=== PATIENT | male | born 1990 | race Caucasian/White ===

== ENCOUNTER 2017-06-18 22:29 | Emergency (ER) | payer BC ==
[2017-06-18] MEDS ORDERED: MOTRIN 600 MG PO ONE (22:57)
--- NOTE | 2017-06-18 23:00 | ERPHSYRPT ---
- History of Present Illness Time Seen by Provider: 06/18/17 22:45 Source: patient, family (father) Patient Subjective Stated Complaint: Right arm pain Triage Nursing Assessment: Pt presents to the ED from home with father at bedside. PT states that he was playing basketball earlier today when he was hit in his right arm with an elbow causing pain. No deformity noted. No other complaints. Physician History: CC: right elbow injury Hx: 26 y/o patient of Dr Rodriguez with hgx of IDDM. He was playing basketball and struck right elbow to another player's elbow. Pain in right elbow. No other injuries. No N/T/W. Occurred: just prior to arrival (1 1/2 hours ago) Extremities Pain Location: elbow: right Allergies/Adverse Reactions: Sulfa (Sulfonamide Antibiotics) [Sulfa(Sulfonamide Antibiotics)] Allergy ( Intermediate, Verified 09/18/15 06:37) Hives Home Medications: Insulin Aspart [NovoLOG Insulin] 1 units SQ UD 11/08/14 [History] Hx Tetanus, Diphtheria Vaccination/Date Given: No Hx Influenza Vaccination/Date Given: No Hx Pneumococcal Vaccination/Date Given: No Immunizations Up to Date: No - Review of Systems Constitutional: No Symptoms Respiratory: No Dyspnea Cardiac: No Chest Pain Musculoskeletal: Joint Pain (right elbow), No Back Pain, No Neck Pain Neurological: No Focal Weakness, No Parasthesia - Past Medical History Pertinent Past Medical History: Yes Neurological History: No Pertinent History ENT History: No Pertinent History Cardiac History: No Pertinent History Respiratory History: No Pertinent History Endocrine Medical History: Diabetes Type I Musculoskeletal History: No Pertinent History GI Medical History: No Pertinent History History: No Pertinent History Psycho-Social History: No Pertinent History Male Reproductive Disorders: No Pertinent History - Past Surgical History Past Surgical History: Yes Neuro Surgical History: No Pertinent History Cardiac: No Pertinent History Respiratory: No Pertinent History Gastrointestinal: No Pertinent History Genitourinary: No Pertinent History Musculoskeletal: Orthopedic Surgery Male Surgical History: No Pertinent History Other Surgical History: rt arm set, Rt leg Rt knee surgery pt states he has a plate et five screws in his right leg - Social History Smoking Status: Never smoker Exposure to second hand smoke: No Drug Use: none Patient Lives Alone: No - Nursing Vital Signs Nursing Vital Signs: Initial Vital Signs Temperature 97.6 F 06/18/17 22:38 Pulse Rate 115 H 06/18/17 22:38 Respiratory Rate 14 06/18/17 22:38 Blood Pressure 116/74 06/18/17 22:38 O2 Sat by Pulse Oximetry 96 06/18/17 22:38 Pain Scale Pain Intensity 5 - Physical Exam General Appearance: alert Eyes, Ears, Nose, Throat Exam: moist mucous membranes Neck Exam: normal inspection, non-tender, supple Cardiovascular/Respiratory Exam: regular rate/rhythm Neuro/Tendon Exam: normal sensation, normal motor functions Mental Status Exam: alert, oriented x 3, cooperative Skin Exam: warm, dry, No rash SpO2: 96 Oxygen Delivery: Room Air Comments: right elbow somewhat tender, no swelling, no redness. ROM limited due to pain. No shoulder, wrist, or hand tenderness. - Course Nursing assessment & vital signs reviewed: Yes - Radiology Exams right elbow X-ray Interpretation: Interpreted by me, No Fracture, Nml Alignment Ordered Tests: Active Orders 24 hr Category Date Time Status Rinku Bandage Application -[facility] STAT Care 06/18/17 23:44 Active Cold Application STAT Care 06/18/17 22:57 Active ELBOW (MINIMUM 3 VIEWS) Stat Exams 06/18/17 22:57 Taken Medication Summary Discontinued Medications Generic Name Dose Route Start Last Admin Trade Name Freq PRN Reason Stop Dose Admin Ibuprofen 600 mg 06/18/17 22:57 06/18/17 23:06 Motrin 600 Mg PO 06/18/17 22:58 600 mg STAT ONE Administration Ibuprofen Confirm 06/18/17 23:04 Motrin 600 Mg Administered 06/18/17 23:05 Dose 600 mg .ROUTE .STK-MED ONE - Progress Progress Note: 06/18/17 23:45 Prelim xray no fx. Will use rinku wrap and his pre-existing sling and motrin. Follow up advised if not better M or T next week. Counseled pt/family regarding: diagnosis, need for follow-up - Departure Time of Disposition: 23:46 Departure Disposition: Home Clinical Impression: Contusion of right elbow Qualifiers: Encounter type: initial encounter Qualified Code(s): S50.01XA - Contusion of right elbow, initial encounter Condition: Stable Critical Care Time: No Referrals: CARLEEN RODRIGUEZ MD [Primary Care Provider] - Instructions: Contusion Additional Instructions: SPRAINS/STRAINS/CONTUSIONS 1. Rest the affected area as much as possible for the next few days. 2. Apply ice to the affected area for 20-30 minutes at a time, several times a day. 3. If you receive an elastic wrap, wear it only while awake for comfort and support. Re-wrap the elastic wrap if it feels too tight or too loose. 4. If swelling is present, elevate the affected part above the level of the heart for at least 2 to 3 days. 5. Use splints, slings, or crutches as instructed. 6. Watch for severe swelling, coldness, numbness, and discoloration of the fingers and toes. See your family physician or return to the emergency department if any of these are noted. Rinku and sling for few days. If not better Friday or Friday next week recheck with Dr Rodriguez.
[2017-06-18] MEDS ORDERED: MOTRIN 600 MG ONE (23:04)
[2017-06-18 23:56] VITALS: BP 130/70; PULSE 74; O2SAT 100
--- NOTE | 2017-06-19 09:18 | XRAY ---
Indication: Sports trauma. Comparison: February 19, 2017. 3 views of the right elbow again demonstrates normal bones, articulation, and soft tissues.
== END 2017-06-18 23:56 | disposition home or self-care (01) ==
LOC: ED 22:29
DX: S50.01XA Contusion of right elbow, initial encounter (principal); W50.0XXA Accidental hit or strike by another person, initial encounter; Y93.67 Activity, basketball; E10.8 Type 1 diabetes mellitus with unspecified complications; Z79.4 Long term (current) use of insulin
CPT/HCPCS: 73080; 99284; A9270-GY

== ENCOUNTER 2018-06-05 16:17 | Emergency (ER) | payer BC, OTHER ==
[2018-06-05] MEDS ORDERED: Sodium Chloride 0.9% 1000 ML 1,000 ML IV STA (16:32)
[2018-06-05] MEDS ORDERED: TORAdol 30 mg Injection IV ONE (16:32)
[2018-06-05] MEDS ORDERED: ROCEPHIN 1 Gm-D5w 50 ml Bag** 1 G/50 ML IVPB IV STA (16:33)
--- NOTE | 2018-06-05 16:36 | ERPHSYRPT ---
- History of Present Illness Time Seen by Provider: 06/05/18 16:33 Source: patient Physician History: fever today after 3 teeth pulled last Friday (wisdom teeth), speech fluent, no trismus, no lethargy Allergies/Adverse Reactions: Sulfa (Sulfonamide Antibiotics) [Sulfa(Sulfonamide Antibiotics)] Allergy ( Intermediate, Verified 09/18/15 06:37) Hives Home Medications: Insulin Aspart [NovoLOG Insulin] 1 units SQ UD 11/08/14 [History] Hx Tetanus, Diphtheria Vaccination/Date Given: No Hx Influenza Vaccination/Date Given: No Hx Pneumococcal Vaccination/Date Given: No - Review of Systems Constitutional: Fever Eyes: No Vision Changes Ears, Nose, & Throat: Mouth Pain, No Ear Pain, No Painful Swallowing Respiratory: No Dyspnea Cardiac: No Chest Pain Abdominal/Gastrointestinal: No Abdominal Pain Skin: No Rash Neurological: No Dizziness - Past Medical History Pertinent Past Medical History: Yes Neurological History: No Pertinent History ENT History: No Pertinent History Cardiac History: No Pertinent History Respiratory History: No Pertinent History Endocrine Medical History: Diabetes Type I Musculoskeletal History: No Pertinent History GI Medical History: No Pertinent History History: No Pertinent History Psycho-Social History: No Pertinent History Male Reproductive Disorders: No Pertinent History - Past Surgical History Past Surgical History: Yes Neuro Surgical History: No Pertinent History Cardiac: No Pertinent History Respiratory: No Pertinent History Gastrointestinal: No Pertinent History Genitourinary: No Pertinent History Musculoskeletal: Orthopedic Surgery Male Surgical History: No Pertinent History Other Surgical History: rt arm set, Rt leg Rt knee surgery pt states he has a plate et five screws in his right leg - Social History Smoking Status: Never smoker Exposure to second hand smoke: No Drug Use: none Patient Lives Alone: No - Nursing Vital Signs Nursing Vital Signs: Initial Vital Signs Temperature 99.9 F 06/05/18 16:32 Pulse Rate 118 H 06/05/18 16:32 Respiratory Rate 18 06/05/18 16:32 Blood Pressure 123/72 06/05/18 16:32 O2 Sat by Pulse Oximetry 99 06/05/18 16:32 Pain Scale Pain Intensity 4 - Physical Exam General Appearance: no apparent distress Eye Exam: eyes nml inspection ENT Exam: airway intact (healing extraction gingiva, no bleeding, no fluc mass) Neck Exam: normal inspection, non-tender, supple, full range of motion Respiratory Exam: no respiratory distress Extremity Exam: normal range of motion Neurologic Exam: alert, oriented x 3, cooperative Skin Exam: warm, dry - Course Nursing assessment & vital signs reviewed: Yes - Radiology Exams Chest X-ray Interpretation: Interpreted by me, No Pneumonia Ordered Tests: Active Orders 24 hr Category Date Time Status IV Insertion STAT Care 06/05/18 16:32 Active CHEST 1 VIEW (PORTABLE) Stat Exams 06/05/18 16:58 Taken BLOOD CULTURE Stat Lab 06/05/18 16:40 Received CBC W DIFF Stat Lab 06/05/18 16:40 Completed CMP Stat Lab 06/05/18 16:40 Completed Lactic Acid Stat Lab 06/05/18 17:05 Completed Urinalysis with Microscopy Stat Lab 06/05/18 Uncollected Medication Summary Generic Name Dose Route Start Last Admin Trade Name Freq PRN Reason Stop Dose Admin Sodium Chloride 1,000 mls @ 999 mls/hr 06/05/18 17:00 06/05/18 18:18 Sodium Chloride 0.9% 1000 Ml IV 06/05/18 20:00 Not Given .Q1H1M MÓNICA Discontinued Medications Generic Name Dose Route Start Last Admin Trade Name Freq PRN Reason Stop Dose Admin Ceftriaxone Sodium/Dextrose 1 g in 50 mls @ 100 mls/hr 06/05/18 16:33 17:25 Rocephin 1 Gm-D5w 50 Ml Bag IV 06/05/18 17:02 Infused STAT STA Infusion Sodium Chloride 1,000 mls @ 999 mls/hr 06/05/18 16:32 Sodium Chloride 0.9% 1000 Ml IV 06/05/18 17:32 .Q1H1M STA Metronidazole 500 mg in 100 mls @ 200 mls/hr 06/05/18 16:54 06/05/18 17:25 Flagyl 500 Mg Ivpb IV 06/05/18 17:23 200 ml/hr STAT STA 200 mls/hr Administration Piperacillin Sod/Tazobactam Sod 3.375 gm in 100 mls @ 200 mls/hr 06/05/18 16: 54 06/05/18 17:56 Zosyn 3.375gm/100 Ml D5w IV 06/05/18 17:23 200 ml/hr STAT STA 200 mls/hr Administration Ceftriaxone Sodium/Dextrose Confirm 06/05/18 16:56 Rocephin 1 Gm-D5w 50 Ml Bag Administered 06/05/18 16:57 Dose 1 g in 50 mls @ ud IV .STK-MED ONE Metronidazole Confirm 06/05/18 17:14 Flagyl 500 Mg Ivpb Administered 06/05/18 17:15 Dose 500 mg in 100 mls @ ud IV .STK-MED ONE Piperacillin Sod/Tazobactam Sod Confirm 06/05/18 17:31 Zosyn 3.375gm/100 Ml D5w Administered 06/05/18 17:32 Dose 3.375 gm in 100 mls @ ud IV .STK-MED ONE Ketorolac Tromethamine 30 mg 06/05/18 16:32 06/05/18 17:03 Toradol 30 Mg Injection IV 06/05/18 16:33 30 mg STAT ONE Administration Ketorolac Tromethamine Confirm 06/05/18 16:56 Toradol 30 Mg Injection Administered 06/05/18 16:57 Dose 30 mg .ROUTE .STK-MED ONE Lab/Rad Data: Laboratory Result Diagrams 06/05/18 16:40 06/05/18 16:40 Laboratory Results 06/05/18 06/05/18 06/05/18 Range/Units 17:24 17:05 16:40 WBC (4.0-10.5) K/mm3 RBC (4.1-5.6) M/mm3 Hgb (12.5-18.0) gm/dl Hct (42-50) % MCV (78-100) fl MCH (26-32) pg MCHC (32-36) g/dl RDW (11.5-14.0) % Plt Count (150-450) K/mm3 MPV (6-9.5) fl Gran % (36.0-66.0) % Eos # (Auto) (0-0.5) Absolute Lymphs (auto) (1.0-4.6) Absolute Monos (auto) (0.0-1.3) Lymphocytes % (24.0-44.0) % Monocytes % (0.0-12.0) % Eosinophils % (0.00-5.0) % Basophils % (0.0-0.4) % Absolute Granulocytes (1.4-6.9) Basophils # (0-0.4) Sodium 140 (137-145) mmol/L Potassium 3.8 (3.5-5.1) mmol/L Chloride 101 (98-107) mmol/L Carbon Dioxide 26 (22-30) mmol/L Anion Gap 16.2 H (5-15) MEQ/L BUN 10 (9-20) mg/dL Creatinine 0.74 (0.66-1.25) mg/dL Estimated GFR > 60.0 ML/MIN Glucose 78 (74-106) mg/dL Lactic Acid 1.3 (0.4-2.0) Calcium 9.9 (8.4-10.2) mg/dL Total Bilirubin 0.90 (0.2-1.3) mg/dL AST 18 (17-59) U/L ALT 15 (0-50) U/L Alkaline Phosphatase 71 (38-126) U/L Serum Total Protein 7.4 (6.3-8.2) g/dL Albumin 4.6 (3.5-5.0) g/dL Group A Strep Antibody NEGATIVE (NEGATIVE) 06/05/18 Range/Units 16:40 WBC 10.0 (4.0-10.5) K/mm3 RBC 5.50 (4.1-5.6) M/mm3 Hgb 16.2 (12.5-18.0) gm/dl Hct 47.7 (42-50) % MCV 86.7 (78-100) fl MCH 29.5 (26-32) pg MCHC 34.0 (32-36) g/dl RDW 13.5 (11.5-14.0) % Plt Count 258 (150-450) K/mm3 MPV 10.2 H (6-9.5) fl Gran % 83.4 H (36.0-66.0) % Eos # (Auto) 0.02 (0-0.5) Absolute Lymphs (auto) 0.72 L (1.0-4.6) Absolute Monos (auto) 0.90 (0.0-1.3) Lymphocytes % 7.2 L (24.0-44.0) % Monocytes % 9.0 (0.0-12.0) % Eosinophils % 0.2 (0.00-5.0) % Basophils % 0.2 (0.0-0.4) % Absolute Granulocytes 8.29 H (1.4-6.9) Basophils # 0.02 (0-0.4) Sodium (137-145) mmol/L Potassium (3.5-5.1) mmol/L Chloride (98-107) mmol/L Carbon Dioxide (22-30) mmol/L Anion Gap (5-15) MEQ/L BUN (9-20) mg/dL Creatinine (0.66-1.25) mg/dL Estimated GFR ML/MIN Glucose (74-106) mg/dL Lactic Acid (0.4-2.0) Calcium (8.4-10.2) mg/dL Total Bilirubin (0.2-1.3) mg/dL AST (17-59) U/L ALT (0-50) U/L Alkaline Phosphatase (38-126) U/L Serum Total Protein (6.3-8.2) g/dL Albumin (3.5-5.0) g/dL Group A Strep Antibody (NEGATIVE) - Progress Progress: improved Counseled pt/family regarding: lab results, diagnosis, need for follow-up, rad results - Departure Time of Disposition: 18:19 Departure Disposition: Home Clinical Impression: Visit for wound check Condition: Stable Critical Care Time: No Referrals: CARLEEN RODRIGUEZ MD [Primary Care Provider] - Instructions: Fever, Adult (DC) Additional Instructions: see your dentist, stop amoxil, start augmentin and flagyl, oral fluids, return if worse, tylenol
[2018-06-05] MEDS ORDERED: FLAGYL 500 MG IVPB 500 MG/100 ML BAG IV STA (16:54)
[2018-06-05] MEDS ORDERED: Zosyn 3.375GM/100 Ml D5W 3.375 GM/100 ML IVPB IV STA (16:54)
[2018-06-05] MEDS ORDERED: TORAdol 30 mg Injection ONE (16:56)
[2018-06-05] MEDS ORDERED: Sodium Chloride 0.9% 1000 ML 1,000 ML ONE (16:56)
[2018-06-05] MEDS ORDERED: ROCEPHIN 1 Gm-D5w 50 ml Bag** 1 G/50 ML IVPB IV ONE (16:56)
[2018-06-05 17:07] LABS: BASOPHIL % 0.2 % (0.0-0.4); Basophil (Absolute #) 0.02 (0-0.4); Eosinophil % 0.2 % (0.00-5.0); Eosinophil (Absolute #) 0.02 (0-0.5); Granulocyte Absolute (ANC) 8.29 (1.4-6.9); Granulocytes % 83.4 % (36.0-66.0); Hematocrit 47.7 % (42-50); Hemoglobin 16.2 gm/dl (12.5-18.0); Lymphocyte (Absolute #) 0.72 (1.0-4.6); Lymphocytes % 7.2 % (24.0-44.0); Mean Cell Volume 86.7 fl (78-100); Mean Corpuscular Hemoglobin 29.5 pg (26-32); Mean Platelet Volume 10.2 fl (6-9.5); Platelet Count 258 K/mm3 (150-450); Red Cell Distribution Width 13.5 % (11.5-14.0)
[2018-06-05] MEDS: Sodium Chloride 0.9% 1000 ML 1,000 ML IV SCH ×3 (17:11→18:18)
[2018-06-05 17:14] LABS: ALBUMIN 4.6 g/dL (3.5-5.0); ALKALINE PHOSPHATASE 71 U/L (38-126); ANION GAP 16.2 MEQ/L (5-15); BLOOD UREA NITROGEN 10 mg/dL (9-20); CHLORIDE 101 mmol/L (98-107); Calcium 9.9 mg/dL (8.4-10.2); Carbon Dioxide 26 mmol/L (22-30); Creatinine 1 0.74 mg/dL (0.66-1.25); Glucose 78 mg/dL (74-106); Potassium 3.8 mmol/L (3.5-5.1); SGOT/AST 18 U/L (17-59); SGPT/ALT 15 U/L (0-50); SODIUM 140 mmol/L (137-145); Total Protein 7.4 g/dL (6.3-8.2)
[2018-06-05] MEDS ORDERED: FLAGYL 500 MG IVPB 500 MG/100 ML BAG IV ONE (17:14)
[2018-06-05] MEDS ORDERED: Sodium Chloride 0.9% 1000 ML 2,000 ML ONE (17:14)
[2018-06-05] MEDS ORDERED: Zosyn 3.375GM/100 Ml D5W 3.375 GM/100 ML IVPB IV ONE (17:31)
[2018-06-05 18:08] VITALS: O2SAT 100
[2018-06-05 18:38] VITALS: BP 106/68; PULSE 100
--- NOTE | 2018-06-06 09:03 | XRAY ---
Indication: Fever and short of breath. Comparison: None Portable chest demonstrates normal heart, lungs, and bony thorax.
== END 2018-06-05 18:36 | disposition home or self-care (01) ==
LOC: ED 16:17
DX: Z51.89 Encounter for other specified aftercare (principal); Z98.818 Other dental procedure status
CPT/HCPCS: 36000; 36415; 71045; 80053; 83605; 85025; 87040; 87651; 96360; 96365; 96367; 96374; 99284; J0696; J1885; J2543

== ENCOUNTER 2020-10-30 21:08 | Emergency (ER) | payer OTHER ==
[2020-10-30 21:17] VITALS: BP 122/68; PULSE 95; O2SAT 96
--- NOTE | 2020-10-30 21:40 | ERPHSYRPT ---
- History of Present Illness Source: patient Patient Subjective Stated Complaint: pt c/o lt wrist pain from playing bb Triage Nursing Assessment: pt c/o lt wrist pain, occured while playing basketball. Pt has hx of breaking this arm x9 times. Pt states, "It got slapped and sandwiched between 2 people". No swelling noted. Able to move it but not to his usual. Can wiggle his finger slightly. Physician History: 30 yo wm w L wrist injury playing basketball. Pt did not fall and simply hit it on another player. Pt is R handed and has fractured the wrist in the past. Occurred: just prior to arrival Method of Injury: direct blow Quality: constant Severity of Pain-Max: mild Severity of Pain-Current: mild Extremities Pain Location: wrist: left Modifying Factors: Improves With: movement Associated Symptoms: none Allergies/Adverse Reactions: Sulfa (Sulfonamide Antibiotics) [Sulfa(Sulfonamide Antibiotics)] Allergy (Intermediate, Verified 10/30/20 21:17) Hives Home Medications: Insulin Aspart [NovoLOG Insulin] 1 units SQ UD 11/08/14 [History] Lamotrigine 100 mg PO DAILY 10/30/20 [History] clonazePAM [Klonopin] 0.5 mg PO BID PRN PRN 10/30/20 [History] Hx Tetanus, Diphtheria Vaccination/Date Given: Yes Hx Influenza Vaccination/Date Given: No Hx Pneumococcal Vaccination/Date Given: No Immunizations Up to Date: Yes Travel Risk - International Travel Have you traveled outside of the country in past 3 weeks: No - Coronavirus Screening Are you exhibiting any of the following symptoms?: No Close contact with a COVID-19 positive Pt in past 14-21 Days: No - Vaccine Status Have you recieved a Covid-19 vaccination: Yes [employer]: Moderna - Vaccination Dates Date of 2cond Vaccination (if applicable): n/a - Review of Systems Constitutional: No Symptoms Eyes: No Symptoms Ears, Nose, & Throat: No Symptoms Respiratory: No Symptoms Cardiac: No Symptoms Abdominal/Gastrointestinal: No Symptoms Genitourinary Symptoms: No Symptoms Skin: No Symptoms Neurological: No Symptoms Psychological: No Symptoms Endocrine: No Symptoms Hematologic/Lymphatic: No Symptoms Immunological/Allergic: No Symptoms - Past Medical History Pertinent Past Medical History: Yes Neurological History: No Pertinent History ENT History: No Pertinent History Cardiac History: No Pertinent History Respiratory History: No Pertinent History Endocrine Medical History: Diabetes Type I Musculoskeletal History: Fractures GI Medical History: No Pertinent History History: No Pertinent History Psycho-Social History: Anxiety, Bipolar, Depression Male Reproductive Disorders: No Pertinent History - Past Surgical History Past Surgical History: Yes Neuro Surgical History: No Pertinent History Cardiac: No Pertinent History Respiratory: No Pertinent History Gastrointestinal: No Pertinent History Genitourinary: No Pertinent History Musculoskeletal: Orthopedic Surgery Male Surgical History: No Pertinent History Other Surgical History: rt arm set, Rt leg Rt knee surgery pt states he has a plate et five screws in his right leg - Social History Smoking Status: Never smoker Exposure to second hand smoke: No Drug Use: none Patient Lives Alone: No Significant Family History: no pertinent family hx - Nursing Vital Signs Nursing Vital Signs: Initial Vital Signs Temperature 97.8 F 10/30/20 21:15 Pulse Rate 95 H 10/30/20 21:15 Respiratory Rate 16 10/30/20 21:15 Blood Pressure 122/68 10/30/20 21:15 O2 Sat by Pulse Oximetry 96 10/30/20 21:15 Pain Scale Pain Intensity 4 - Physical Exam General Appearance: no apparent distress Eyes, Ears, Nose, Throat Exam: normal ENT inspection, TMs normal, pharynx normal Neck Exam: normal inspection, non-tender, supple, No Brudzinski, No Kernig's, No meningismus Cardiovascular/Respiratory Exam: normal breath sounds, regular rate/rhythm, heart sounds normal Abdominal Exam: non-tender, soft Back Exam: normal inspection, normal range of motion, No vertebral tenderness Shoulder Exam: normal inspection Elbow/Forearm Exam: normal inspection Wrist Exam: bone tenderness (L wrist TTP distal radius/ulna/Minimal edema/Good radial pulse, distal sensation, and capillary return) Hand Exam: normal inspection, non-tender Neuro/Tendon Exam: normal sensation, normal motor functions, normal tendon functions, responds to pain Mental Status Exam: alert, oriented x 3, cooperative Skin Exam: normal color, warm, dry SpO2 Interpretation: normal SpO2: 96 O2 Delivery: Room Air - Course Nursing assessment & vital signs reviewed: Yes - Radiology Exams Wrist X-ray Interpretation: Interpreted by me (No fx or dislocation) Ordered Tests: Active Orders 24 hr Category Date Time Status Rinku Bandage Application -[facility] STAT Care 10/30/20 22:05 Completed WRIST (MIN 3 VIEWS) Stat Exams 10/30/20 21:38 Taken - Progress Progress: improved Progress Note: 10/30/20 22:07 Rinku bandage L wrist per nursing/NVI Counseled pt/family regarding: need for follow-up, rad results - Departure Departure Disposition: Home Clinical Impression: Contusion of wrist, left Condition: Stable Critical Care Time: No Referrals: CARLEEN RODRIGUEZ MD [Primary Care Provider] - Instructions: Contusion (DC), Common Wrist Injuries (DC) Additional Instructions: Rinku wrap for 2-3 days Ice for 12-24 hours Motrin/tylenol for pain Follow up with family MD as needed
--- NOTE | 2020-10-31 08:49 | XRAY ---
Indication: Sports injury. Comparison: January 12, 2020. 3 view left wrist obtained. No bony, articular, or soft tissue abnormalities.
== END 2020-10-30 22:13 | disposition home or self-care (01) ==
LOC: ED 21:08
DX: M25.532 Pain in left wrist (principal); W51.XXXA Accidental striking against or bumped into by another person, initial encounter; Y93.67 Activity, basketball; Y92.9 Unspecified place or not applicable
CPT/HCPCS: 73110; 99283